=== PATIENT | female | born 1935 | race Caucasian/White ===

== ENCOUNTER 2018-09-07 21:39 | Emergency (ER) | payer MEDICARE ==
[2018-09-07] MEDS ORDERED: ASPIRIN 81 MG TABLET, CHEWABLE PO ONE (21:44)
[2018-09-07 21:59] LABS: MEAN CORPUSCULAR HEMOGLOBIN 30.6 pg (27.0-33.4); MEAN CORPUSCULAR HGB CONC 33.4 g/dL (32.0-36.0); MEAN CORPUSCULAR VOLUME 92 fl (80-97); PLATELET COUNT 317 10^3/uL (150-450); RED BLOOD COUNT 4.57 10^6/uL (3.72-5.28); RED CELL DISTRIBUTION WIDTH 13.6 % (11.5-14.0); WHITE BLOOD COUNT 24.7 10^3/uL (4.0-10.5)
[2018-09-07 22:04] LABS: INTERNATIONAL RATION (INR) 1.49; PROTHROMBIN TIME 18.2 SEC (11.4-15.4)
[2018-09-07 22:05] LABS: PARTIAL THROMBOPLASTIN TIME 29.3 SEC (23.5-35.8)
--- NOTE | 2018-09-07 22:07 | ER Document Report ---
ED General - General Chief Complaint: Altered Mental Status Stated Complaint: UNRESPONSIVE Time Seen by Provider: 09/07/18 21:48 Primary Care Provider: BISMARK CARPENTER MD [Primary Care Provider] - Follow up as needed Mode of Arrival: Stretcher Information source: Emergency Med Personnel Cannot obtain history due to: Other - Patient is unresponsive. TRAVEL OUTSIDE OF THE [place] IN LAST 30 DAYS: No - HPI Patient complains to provider of: Patient was found unresponsive at home. Onset: Other - Last known last known well was 2 PM yesterday. Quality of pain: No pain Notes: Patient was found unresponsive at home and she was covered with feces. EMS was called and when they came patient was intubated by EMS on the field. Patient was unstable so EMS brought the patient to the emergency room - Related Data Allergies/Adverse Reactions: No Known Allergies Allergy (Verified 09/07/18 22:37) Past Medical History - General Information source: Relative - Social History Smoking Status: Unknown if Ever Smoked Family History: Other - Unknown Review of Systems - Review of Systems -: Yes ROS unobtainable due to patient's medical condition - Unresponsive and intubated. Physical Exam - Vital signs Vitals: Resp Pulse Ox 14 99 09/07/18 21:42 09/07/18 21:42 Interpretation: Normal - General General appearance: Unresponsive - HEENT Head: Normocephalic, Atraumatic Pupils: Fixed - Respiratory Respiratory status: Other - Intubated Chest status: Nontender Breath sounds: Normal Chest palpation: Normal - Cardiovascular Rhythm: Tachycardia Heart sounds: Normal auscultation Murmur: No - Abdominal Inspection: Normal Distension: No distension Bowel sounds: Normal Tenderness: Nontender Organomegaly: No organomegaly Notes: Patient is covered in stool. - Back Back: Normal, Nontender - Extremities General upper extremity: Normal inspection, Nontender, Normal color General lower extremity: Normal inspection, Nontender, Normal color. No: Guy's sign - Neurological Cognition: Normal Notes: GCS of 3. Patient is intubated on ventilator. - Skin Skin Temperature: Warm - Covered in stool. Skin Moisture: Dry Skin Color: Pale, Other - Covered in stool. Course - Vital Signs Vital signs: Temp Pulse Resp BP Pulse Ox 16 116/68 98 09/08/18 00:46 09/08/18 00:46 09/08/18 01:00 - Laboratory Result Diagrams: 09/07/18 21:45 09/07/18 21:45 Laboratory results interpreted by me: 09/07/18 09/07/18 09/07/18 21:45 21:45 21:45 WBC 24.7 H Seg Neuts % (Manual) 86 H Lymphocytes % (Manual) 7 L Abs Neuts (Manual) 21.2 H Abs Monocytes (Manual) 1.7 H PT Sodium 133.0 L Potassium 5.5 H Carbon Dioxide 15 L BUN 40 H Creatinine 2.66 H Est GFR ( Amer) 21 L Est GFR (Non-Af Amer) 17 L Glucose 121 H Calcium 7.2 L Direct Bilirubin 0.6 H AST 958 H ALT 563 H Creatine Kinase 1315 H CK-MB (CK-2) 95.50 H NT-Pro-B Natriuret Pep 28604 H Total Protein 5.5 L Albumin 2.6 L 09/07/18 21:45 WBC Seg Neuts % (Manual) Lymphocytes % (Manual) Abs Neuts (Manual) Abs Monocytes (Manual) PT 18.2 H Sodium Potassium Carbon Dioxide BUN Creatinine Est GFR ( Amer) Est GFR (Non-Af Amer) Glucose Calcium Direct Bilirubin AST ALT Creatine Kinase CK-MB (CK-2) NT-Pro-B Natriuret Pep Total Protein Albumin - Diagnostic Test Radiology reviewed: Reports reviewed - EKG Interpretation by Me Additional EKG results interpreted by me: 09/09/18 00:11 EKG was sent to Dr. Andrews at [facility]. He reviewed the EKG and recommended no aspirin, no thrombolytics. He also said the patient is not a candidate for PCI. There is no obvious STEMI according to Dr. Andrews. However due to patient comorbidities PCI or thrombolytics at this point is contraindicated. - Transfer of Care Notes: 09/09/18 00:13 She was accepted for transfer to [facility] by the hand surgeon unit control clerk Dr. Andrews for higher level of care. Critical Care Note - Critical Care Note Total time excluding time spent on procedures (mins): 55 Comments: Time was spent on multiple consults review of imaging and lab studies and talking with the patient's son who is in the ED. Discharge - Discharge Clinical Impression: Elevated troponin CVA (cerebral vascular accident) Qualifiers: CVA mechanism: unspecified Qualified Code(s): I63.9 - Cerebral infarction, unspecified Myocardial infarction Qualifiers: Myocardial infarction type: unspecified Involved coronary artery: unspecified coronary artery Qualified Code(s): I21.9 - Acute myocardial infarction, unspecified Leukocytosis Qualifiers: Leukocytosis type: unspecified Qualified Code(s): D72.829 - Elevated white blood cell count, unspecified Condition: Critical Disposition: [facility] Admitting Provider: Dr Sidney Graves. Referrals: BISMARK CARPENTER MD [Primary Care Provider] - Follow up as needed
[2018-09-07 22:16] LABS: ABSOLUTE LYMPHOCYTES# (MANUAL) 1.7 10^3/uL (0.5-4.7); ABSOLUTE MONOCYTES # (MANUAL) 1.7 10^3/uL (0.1-1.4); BASOPHILS % (MANUAL) 0 % (0-2); EOSINOPHILS % (MANUAL) 0 % (0-6); LYMPHOCYTES % (MANUAL) 7 % (13-45); MONOCYTES % (MANUAL) 7 % (3-13); SEGMENTED NEUTROPHILS % (MAN) 86 % (42-78); TOTAL CELLS COUNTED 100
[2018-09-07 22:17] LABS: ALANINE AMINOTRANSFERASE 563 U/L (9-52); ALBUMIN 2.6 g/dL (3.5-5.0); ALKALINE PHOSPHATASE 72 U/L (38-126); ANION GAP 16 (5-19); BILIRUBIN,DIRECT 0.6 mg/dL (0.0-0.4); BILIRUBIN,TOTAL 0.6 mg/dL (0.2-1.3); BLOOD UREA NITROGEN 40 mg/dL (7-20); CALCIUM 7.2 mg/dL (8.4-10.2); CARBON DIOXIDE 15 mmol/L (22-30); CHLORIDE 102 mmol/L (98-107); CREATINE KINASE 1315 U/L (30-135); GLUCOSE 121 mg/dL (75-110); PLATELET CLUMPS PRESENT; PLATELET COMMENT ADEQUATE; POTASSIUM 5.5 mmol/L (3.6-5.0); TOTAL PROTEIN 5.5 g/dL (6.3-8.2)
[2018-09-07 22:30] LABS: CREATINE KINASE MB 95.5 ng/mL (<4.55)
[2018-09-07 22:34] LABS: ASPARTATE AMINO TRANSFERASE 958 U/L (14-36)
--- NOTE | 2018-09-07 22:36 | RADIOLOGY REPORT (SQ) ---
EXAM DESCRIPTION: XR CHEST 1 VIEW COMPLETED DATE/TME: 09/07/2018 21:44 CLINICAL HISTORY: 83 years, Female, intubated COMPARISON: None. NUMBER OF VIEWS: TECHNIQUE: LIMITATIONS: None. FINDINGS: The tip of the endotracheal tube is 3-4 cm above the henrik. There is possible infiltrate at the left lung base. There is a small left pleural effusion. The heart is normal in size. Pulmonary vascularity appears normal. The tip of the nasogastric tube is in the region of the gastric antrum. IMPRESSION: The tip of the ET tube is 3-4 cm above the henrik. Possible left basilar infiltrate with a small pleural effusion. copyright 2010 [employer]- All Rights Reserved
[2018-09-07] MEDS ORDERED: NORMAL SALINE 1000 ML 1,000 ML IV ONE (22:58)
[2018-09-07] MEDS ORDERED: DEXTROSE 5%-WATER 250 ML with NOREPINEPHRINE BITARTRATE 4 MG IV PRN ×2 (22:59)
--- NOTE | 2018-09-07 23:27 | RADIOLOGY REPORT (SQ) ---
CT HEAD WITHOUT IV CONTRAST EXAM DATE: 09/07/2018 10:19 PM CDT HISTORY: AMS. COMPARISON: None. TECHNIQUE: CT scan of the brain without IV contrast. This exam was performed according to our departmental dose-optimization program, which includes automated exposure control, adjustment of the mA and/or kV according to patient size and/or use of iterative reconstruction technique. FINDINGS: There is confluent focal edema with sulcal effacement extending to the cortex in the region of the right JASON and GRIP ASSEMBLER territories, consistent with acute to subacute cortical infarcts. Additionally, there is severe atherosclerotic disease involving the right distal vertebral artery. Diffuse involutional changes are present. There are scattered areas of hypoattenuation within the periventricular white matter, which likely represent chronic microvascular ischemia. No evidence of acute intracranial hemorrhage, extra-axial fluid collection, or midline shift. No air-fluid levels are seen in the paranasal sinuses to suggest acute sinusitis. No depressed skull fracture. IMPRESSION: 1. Acute to subacute cortical infarcts involving the right JASON and GRIP ASSEMBLER territories. 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 MRI and MRA are recommended for complete evaluation. 2. No acute intracranial hemorrhage.
--- NOTE | 2018-09-07 23:37 | EKG REPORT ---
SEVERITY:- ABNORMAL ECG - SINUS TACHYCARDIA INCOMPLETE LEFT BUNDLE BRANCH BLOCK LVH WITH SECONDARY REPOLARIZATION ABNORMALITY ANTERIOR INJURY, EARLY ACUTE INFARCT : Confirmed by: Julian Marshall 07-Sep-2018 23:36:44
[2018-09-08 01:16] VITALS: BP 116/68
== END 2018-09-08 01:18 | disposition short-term general hospital (02) ==
LOC: ER 21:39 → EDBD 21:39 → ER 09-08 01:18
DX: I63.521 Cerebral infarction due to unspecified occlusion or stenosis of right anterior cerebral artery (principal); I63.531 Cerebral infarction due to unspecified occlusion or stenosis of right posterior cerebral artery; I21.9 Acute myocardial infarction, unspecified; R41.82 Altered mental status, unspecified; R23.1 Pallor
CPT/HCPCS: 93005; 36415; 82553; 82550; 85025; 85610; 85730; 80053; 84484; 83880; 71045; 70450; 94660; 93010; J3490; J7060; J7030